=== PATIENT | male | born 1980 | race Caucasian/White ===

== ENCOUNTER 2016-10-27 08:15 | Emergency (ER) | payer OTHER ==
[2016-10-27 08:26] VITALS: BP 150/90; PULSE 74; TEMP 98; BMI 33.0
[2016-10-27] MEDS ORDERED: DIPHTH,PERTUSS(ACELL),TET 0.5 ML DISP.SYRIN IM ONE (08:40)
--- NOTE | 2016-10-27 08:47 | PDOC ---
History of Present Illness - General Chief Complaint: Injury Stated Complaint: LACERATION Time Seen by Provider: 10/27/16 08:30 History Source: Patient Exam Limitations: No Limitations - History of Present Illness Initial Comments: 10/27/16 08:39 CHIEF COMPLAINT: Laceration to the left palm, base of the left thumb. HISTORY OF PRESENT ILLNESS: Patient is a 36 y/o male, with no significant medical history, currently on no medication. Presents to the ER with linear laceration to the palm of the left hand. Patient reports he sustained laceration while at work. Good range of motion to hand. Bleeding controlled with pressure. Boostrix is not up to date. Timing/Duration: 1 hour Severity: moderate Associated Symptoms: reports: denies symptoms Past History - Past Medical History Allergies/Adverse Reactions: Allergies Allergy/AdvReac Type Severity Reaction Status Date / Time No Known Allergies Allergy Verified 10/27/16 08:21 Home Medications: Ambulatory Orders NK [No Known Home Medication] 10/27/16 Other medical history: denies - Surgical History Appendectomy: Yes - Psycho/Social/Smoking Cessation Hx Anxiety: No Suicidal Ideation: No Smoking History: Never smoked Information on smoking cessation initiated: No Hx Alcohol Use: No Drug/Substance Use Hx: No Substance Use Type: None Review of Systems - Review of Systems Constitutional: No: Symptoms Reported Respiratory: No: Symptoms reported Cardiac (ROS): No: Symptoms Reported Musculoskeletal: No: Symptoms Reported, Joint Pain, Joint Swelling, Muscle Pain , Muscle Weakness, Joint Stiffness Integumentary: Yes: Other (3 cm linear laceration to palm of left hand, base of thumb.) Neurological: No: Symptoms reported, Tingling, Tremors Hematologic/Lymphatic: No: Symptoms Reported All Other Systems: Reviewed and Negative *Physical Exam - Vital Signs Last Vital Signs Temp Pulse Resp BP Pulse Ox 98 F 74 19 150/90 100 10/27/16 08:20 10/27/16 08:20 10/27/16 08:20 10/27/16 08:20 10/27/16 08:20 - Physical Exam General Appearance: Yes: Appropriately Dressed. No: Apparent Distress Neck: negative: Tender lateral, Tender midline Respiratory/Chest: positive: Lungs Clear, Normal Breath Sounds. negative: Respiratory Distress, Accessory Muscle Use Cardiovascular: positive: Regular Rhythm, Regular Rate Lymphatic: negative: Adenopathy Musculoskeletal: positive: Normal Inspection Extremity: positive: Normal Capillary Refill, Normal Range of Motion, Other (3 cm linear laceration to the palm of the left hand at the base of the thumb. Thenar area. ). negative: Swelling, Erythema, Inflammation Neurologic: positive: Alert, Normal Mood/Affect Procedures - Laceration/Wound Repair Left Hand Wound Length: 2.6 to 5.0 cm Wound Explored: clean Wound's Depth, Shape: linear Irrigated w/ Saline: Yes Betadine Prep: Yes Anesthesia: 1% Lidocaine Amount of Anesthetic (ccs): 3 Wound Repaired With: Sutures Suture Size/Type: 5:0 Number of Sutures: 4 Layer Closure: No Medical Decision Making - Medical Decision Making 10/27/16 09:23 A/P: Patient here for evaluation of laceration to left hand, see procedure note , there is good range of motion no tendon or ligament involvement. Bleeding was controlled. Instructions for care and when to return explained to patient in [place], he verbalized understanding. *DC/Admit/Observation/Transfer Diagnosis at time of Disposition: Laceration of hand Qualifiers: Encounter type: initial encounter Foreign body presence: without foreign body Laterality: left Qualified Code(s): S61.412A - Laceration without foreign body of left hand, initial encounter - Discharge Dispostion Disposition: HOME Condition at time of disposition: Good Admit: No - Patient Instructions Additional Instructions: Mantenga el traci limpia, seca e intacta Sigue vestirse hasta maana Si cualquier sangrado aumentado a travs del vendaje regresa inmediatamente al departamento de urgencias Mantenga el traci limpia seca e intacta de bacitracina x3 casillas, luego deje que se seque Vuelva por favor en 10 casillas para la eliminacin de la sutura. Por favor regrese de inmediato al servicio de urgencias con cualquier aumento de enrojecimiento, hinchazn, signos de infeccin Keep area clean dry and intact Keep dressing on until tomorrow If any increased bleeding through the dressing return immediately to emergency department Keep area clean dry and intact bacitracin x3 days, then let it dry out Please return in 10 days for suture removal. Please return immediately to emergency department with any increased redness, swelling, signs of infection - Post Discharge Activity Work/School Note: Back to Work
== END 2016-10-27 09:17 | disposition home or self-care (01) ==
LOC: JERFT 08:15
PROC: 0JQK0ZZ Repair Left Hand Subcutaneous Tissue and Fascia, Open Approach (ICD-10-PCS; principal; 2016-10-27)
PROC: 3E0234Z Introduction of Serum, Toxoid and Vaccine into Muscle, Percutaneous Approach (ICD-10-PCS; 2016-10-27)
DX: S61.412A Laceration without foreign body of left hand, initial encounter (principal); W45.8XXA Other foreign body or object entering through skin, initial encounter; W22.8XXA Striking against or struck by other objects, initial encounter; Y93.89 Activity, other specified; Y92.89 Other specified places as the place of occurrence of the external cause; Y99.0 Civilian activity done for income or pay
CPT/HCPCS: 90715; 99281-25

== ENCOUNTER 2016-11-02 10:45 | Emergency (ER) | payer OTHER ==
[2016-11-02 11:03] VITALS: BP 142/65; PULSE 60; TEMP 98; BMI 30.1
--- NOTE | 2016-11-02 11:48 | PDOC ---
Suture Removal/Wound Check HPI - History of Present Illness Chief Complaint: Suture/Staple Removal(Here) Stated Complaint: SUTURE REMOVAL Time Seen by Provider: 11/02/16 11:48 Past History - Past Medical History Allergies/Adverse Reactions: Allergies Allergy/AdvReac Type Severity Reaction Status Date / Time No Known Allergies Allergy Verified 11/02/16 11:00 Home Medications: Ambulatory Orders NK [No Known Home Medication] 10/27/16 Other medical history: NONE - Surgical History Appendectomy: Yes - Suicide/Smoking/Psychosocial Hx Smoking History: Never smoked Information on smoking cessation initiated: No Hx Alcohol Use: No Drug/Substance Use Hx: No Substance Use Type: None *DC/Admit/Observation/Transfer Diagnosis at time of Disposition: Encounter for removal of sutures - Discharge Dispostion Disposition: HOME Condition at time of disposition: Good Admit: No - Patient Instructions Printed Discharge Instructions: DI for Suture Removal Additional Instructions: Your sutures were removed today. The cut is healed well. Keep the area clean and dry Avoid lifting heavy objects for one week. You may take Motrin as needed for pain, not to exceed 3000 mg a day Return to the ED if you have worsening pain, fevers, chills, signs of infection including redness, or discharge, or any changes in your symptoms Irvin suturas fueron removidas hoy. El boris se nikos olga lidia. Mantenga la harlan limpia y seca Evite levantar objetos pesados joel pavan semana. Usted puede chhaya Motrin segn sea necesario para el dolor, no exceder los 3000 mg al da Vuelva a la [place] si tiene dolor, fiebre, escalofros, signos de infeccin, incluyendo enrojecimiento o secrecin, o cualquier cambio en irvin sntomas Print Language: SAMI - Post Discharge Activity Work/School Note: Back to Work
== END 2016-11-02 12:07 | disposition home or self-care (01) ==
LOC: JERFT 10:45
DX: Z48.02 Encounter for removal of sutures (principal)
CPT/HCPCS: 99281-25